=== PATIENT | male | born 2000 | race Caucasian/White ===

== ENCOUNTER 2018-11-17 21:15 | Emergency (ER) | payer OTHER ==
[2018-11-17 21:20] VITALS: TEMP 97.7
[2018-11-17] MEDS ORDERED: IBUPROFEN 600 MG TAB PO STA (21:53)
--- NOTE | 2018-11-17 22:11 | ED ---
General Adult HPI - General Chief complaint: Chest Pain Stated complaint: Chest pain x 3 days Time Seen by Provider: 11/17/18 21:21 Source: patient Mode of arrival: ambulatory Limitations: no limitations - History of Present Illness Initial comments: 18-year-old male patient presents to the emergency department today for evaluation of chest pain. Patient states he's been having pain for the last 4-5 days. Patient states that the pain comes and goes. He states that today the pain was at its worst. He states that the pain worsens when he rates his arms up in front of him. Patient states that taking a deep breath seems to help the pain lessened. States it does seem to worsen after eating. Denies any known injury but states that he was lifting heavy items prior to onset of pain 4 days ago. He denies taking any medication for his symptoms. Denies any history of chest pain. Denies any family history of cardiac disease or onset of cardiac disease at an early age. Denies any history of familial sudden cardiac . Patient denies any recent rash, fever, chills, abdominal pain, nausea, vomiting, diarrhea, constipation, back pain, numbness, tingling, dizziness, weakness, hematuria, dysuria, urinary urgency, urinary frequency, headache, visual changes, or any other complaints. - Related Data Home Medications Medication Instructions Recorded Confirmed Biotin 5 mg PO DAILY 11/17/18 11/17/18 Ibuprofen [Motrin Ib] 400 mg PO Q8HR PRN 11/17/18 11/17/18 Previous Rx's Medication Instructions Recorded Naproxen [EC-Naprosyn] 500 mg PO BID PRN #30 tablet. 11/17/18 Allergies Allergy/AdvReac Type Severity Reaction Status Date / Time No Known Allergies Allergy Verified 11/17/18 21:32 Review of Systems ROS Statement: Those systems with pertinent positive or pertinent negative responses have been documented in the HPI. ROS Other: All systems not noted in ROS Statement are negative. Past Medical History Past Medical History: No Reported History History of Any Multi-Drug Resistant Organisms: None Reported Past Surgical History: No Surgical Hx Reported Past Psychological History: Anxiety Smoking Status: Current every day smoker Past Alcohol Use History: None Reported Past Drug Use History: Marijuana General Exam Limitations: no limitations General appearance: alert, in no apparent distress, other (This is a well- developed, well-nourished adult male patient in no acute distress. Vital signs upon presentation are temperature 97.7F, pulse 126, respirations 17, blood pressure 133/83, pulse ox 100% on room air.) Eye exam: Present: normal appearance, PERRL, EOMI. Absent: scleral icterus, conjunctival injection, periorbital swelling ENT exam: Present: normal exam, normal oropharynx, mucous membranes moist Respiratory exam: Present: normal lung sounds bilaterally, chest wall tenderness (Over the sternum). Absent: respiratory distress, wheezes, rales, rhonchi, stridor Cardiovascular Exam: Present: regular rate, normal rhythm, normal heart sounds. Absent: systolic murmur, diastolic murmur, rubs, gallop, clicks GI/Abdominal exam: Present: soft, normal bowel sounds. Absent: distended, tenderness, guarding, rebound, rigid Neurological exam: Present: alert, oriented X3, CN II-XII intact Psychiatric exam: Present: normal affect, normal mood Skin exam: Present: warm, dry, intact, normal color. Absent: rash Course Vital Signs 11/17/18 11/17/18 21:17 22:34 Temperature 97.7 F Pulse Rate 126 H 80 Respiratory 17 16 Rate Blood Pressure 133/83 115/79 O2 Sat by Pulse 100 97 Oximetry EKG Findings - EKG Comments: EKG Findings:: EKG obtained at 2154 shows normal sinus rhythm with a ventricular rate of 100, ME interval 140, QRS duration 94, QT 330, QTC 425. No evidence of ST elevation or depression. Medical Decision Making - Medical Decision Making 18-year-old male patient presents to the emergency department today for evaluation of chest pain. Patient states it radiates across his chest and is worse when he raises his arms and with palpation. The patient denies any shortness of breath, nausea, vomiting, or sweats. Denies any history of cardiac disease at a young age or sudden cardiac in his family. EKG showed normal sinus rhythm. Chest x-ray was unremarkable. Given the reproducibility of his pain, history of heavy lifting, and the increase in pain with movement is felt that his pain is musculoskeletal in nature. We'll treat with anti-inflammatory medication. Is instructed to follow-up with his primary care physician for recheck in 1-2 days. Return parameters discussed in detail. He verbalizes understanding and agrees with this plan. - Radiology Data Radiology results: report reviewed, image reviewed Two-view x-ray of the chest is obtained. Report was reviewed in its entirety. Impression by Dr. Jermaine Paula shows no acute process. Incidental finding of scoliosis. Disposition Clinical Impression: Chest pain Disposition: HOME SELF-CARE Condition: Good Instructions (If sedation given, give patient instructions): Chest Pain (ED), Costochondritis (ED) Additional Instructions: Take medications as directed. Avoid heavy lifting or vigorous physical activity. Rest. Follow-up with your primary care physician for recheck in 1-2 days. Return to the emergency department immediately for any new, worsening, or concerning symptoms. Prescriptions: Naproxen [EC-Naprosyn] 500 mg PO BID PRN #30 tablet.[address] MORRIS Reason: Pain Is patient prescribed a controlled substance at d/c from ED?: No Referrals: Carrie Benjamin MD [Primary Care Provider] - 1-2 days Time of Disposition: 22:56
[2018-11-17 22:35] VITALS: BP 115/79; PULSE 80; RESP 16
--- NOTE | 2018-11-17 22:36 | XR ---
EXAMINATION: XR chest 2V DATE AND TIME: 11/17/2018 10:27 PM CLINICAL INDICATION: PHH; Pain TECHNIQUE: Departmental protocol COMPARISON: 11/04/2015 FINDINGS: The lungs are clear. The pleural spaces are negative. The cardiac silhouette is not enlarged. The remainder of the mediastinal silhouette is unremarkable. The skeletal structures and soft tissues are negative for acute findings. IMPRESSION: 1. NO ACUTE PROCESS. 2. Incidental: Scoliosis.
== END 2018-11-17 23:00 | disposition home or self-care (01) ==
LOC: EC 21:15
DX: R07.9 Chest pain, unspecified (principal); F17.200 Nicotine dependence, unspecified, uncomplicated
CPT/HCPCS: 71046; 93005; 99285

== ENCOUNTER → 2024-03-10 | Outpatient (CLI) | payer OTHER ==
--- NOTE | 2024-03-10 13:57 | MR ---
EXAMINATION TYPE: MR brain wo con DATE OF EXAM: 03/10/2024 1:41 PM COMPARISON: None. CLINICAL INDICATION: Male, 23 years old with history of G43.909 Migraines, Migraines, weakness TECHNIQUE: Multiplanar and multispin-echo imaging of the brain was performed . FINDINGS: The ventricles, basal cisterns and sulci overlying the cerebral convexities are within normal limits. There is no evidence for midline shift or mass effect. Acute intracranial hemorrhage or extra-axial collection is not evident. The brain parenchyma reveals no abnormal increased signal. No acute edema is identified. The paranasal sinuses and mastoid air cells are well-aerated. IMPRESSION: Unremarkable MRI of the brain. [facility], , 03/10/2024 1:55 PM
== END | disposition home or self-care (01) ==
LOC: RADMRIMAIN 12:30
PROVIDERS: ATTEND Family Medicine
DX: G43.909 Migraine, unspecified, not intractable, without status migrainosus (principal)
CPT/HCPCS: 70551

== ENCOUNTER → 2024-08-29 | Outpatient (CLI) | payer OTHER ==
[2024-08-29 20:32] LABS: Gliadin AB IgA, Deaminated Negative (Negative); Gliadin AB IgA, Unit <0.5 U/mL; Gliadin AB IgG, Deaminated Negative (Negative); Gliadin AB IgG, Unit <0.4 U/mL
== END | disposition home or self-care (01) ==
LOC: LABWHC1 14:01
PROVIDERS: ATTEND Internal Medicine Gastroenterology
DX: R19.7 Diarrhea, unspecified (principal)
CPT/HCPCS: 36415; 83516; 85652